=== PATIENT | male | born 1995 | race African-American/Black ===

== ENCOUNTER 2017-10-12 22:01 | Emergency (ER) | payer MEDICAID ==
[2017-10-12] MEDS ORDERED: diphenhydrAMINE 50 MG/ML SDV IM ONE (22:23)
[2017-10-12] MEDS ORDERED: methylPREDNISolone Sodium Succinate 125 MG/2 ML SDV IM ONE (22:23)
[2017-10-12] MEDS ORDERED: EPINEPHrine 1 MG/ML SDV IM ONE (22:23)
--- NOTE | 2017-10-12 22:25 | EDM.PDOC ---
ED HPI GENERAL MEDICAL PROBLEM - General Chief Complaint: Allergic Reaction Stated Complaint: ALLERGIC REACTION Time Seen by Provider: 10/12/17 22:24 Source of Information: Reports: Family, RN Notes Reviewed History Limitations: Reports: No Limitations - History of Present Illness INITIAL COMMENTS - FREE TEXT/NARRATIVE: 22-year-old gentleman presents to the emergency department today with complaint of difficulty breathing and hard to swallow he has a known seafood allergy does carry an EpiPen believes he was recently exposed to some food presented to the emergency department as he does not have his medication chest Pain Score (Numeric/FACES): 7 - Related Data Allergies Allergy/AdvReac Type Severity Reaction Status Date / Time almond Allergy Airway Verified 10/12/17 22:07 Tightness Latex, Natural Rubber Allergy Rash Verified 10/12/17 22:07 shellfish derived Allergy Anaphylactic Verified 10/12/17 22:07 Shock Home Meds: Home Meds EPINEPHrine [Auvi-Q] 0.1 mg SUBCUT ASDIRECTED PRN 10/12/17 [History] Past Medical History Immunologic History: Reports: Other (See Below) (Seafood allergy) Social & Family History - Tobacco Use Smoking Status *Q: Never Smoker ED ROS ALLERGIC REACTION - Review of Systems Review Of Systems: See Below Constitutional: Reports: No Symptoms HEENT: Reports: Throat Pain, Throat Swelling Respiratory: Reports: Shortness of Breath Cardiovascular: Reports: No Symptoms GI/Abdominal: Reports: No Symptoms : Reports: No Symptoms ED EXAM GENERAL NO PERIP PULSE - Physical Exam Exam: See Below Exam Limited By: No Limitations General Appearance: Alert, Mild Distress Throat/Mouth: Normal Inspection, Normal Lips, Normal Teeth, Normal Gums, Normal Oropharynx, Normal Voice, No Airway Compromise Head: Atraumatic, Normocephalic Neck: Normal Inspection, Supple, Non-Tender, Full Range of Motion Respiratory/Chest: No Respiratory Distress, Lungs Clear, Normal Breath Sounds, No Accessory Muscle Use, Chest Non-Tender Cardiovascular: Regular Rate, Rhythm, No Murmur Course - Vital Signs Last Recorded V/S: Last Vital Signs Temp 97.5 F 10/12/17 23:18 Pulse 63 10/12/17 23:18 Resp 18 10/12/17 23:18 BP 127/70 10/12/17 23:18 Pulse Ox 98 10/12/17 23:18 - Orders/Labs/Meds Meds: Medications Discontinued Medications Generic Name Dose Route Start Last Admin Trade Name Rachel PRN Reason Stop Dose Admin Diphenhydramine HCl 50 mg 10/12/17 22:23 10/12/17 22:28 Benadryl IM 10/12/17 22:24 50 mg ONETIME ONE Administration Epinephrine HCl 0.3 mg 10/12/17 22:23 10/12/17 22:27 Adrenalin IM 10/12/17 22:24 0.3 mg ONETIME ONE Administration Methylprednisolone Sodium Succinate 125 mg 10/12/17 22:23 10/12/17 22:28 Solu-Medrol IM 10/12/17 22:24 125 mg ONETIME ONE Administration Departure - Departure Time of Disposition: 00:01 Disposition: Home, Self-Care 01 Condition: Good Clinical Impression: Allergic reaction Qualifiers: Encounter type: initial encounter Qualified Code(s): T78.40XA - Allergy, unspecified, initial encounter - Discharge Information Referrals: PCP,None [Primary Care Provider] - Forms: ED Department Discharge Additional Instructions: Please fill the prescription for the injectable epinephrine, Please followup with your primary care provider in 3-5 days if not better, please call return to the emergency department with worsening of symptoms. - Assessment/Plan Plan: Assessment Acuity = acute Site and laterality = allergic reaction Etiology = secondary to seafood allergy Manifestations = dyspnea and throat swelling no improved Location of injury = Home Lab values = none Plan He was given 0.3 mg epinephrine IM, 50 mg Benadryl IM and 125 mg Solu-Medrol IM significant improvement after treatment he was observed for about 2 hours prescription written for injectable epinephrine 0.3 mg IM 1 him follow-up with his primary care in 3-5 days if not better This note was dictated using Accountable voice recognition software please call with any questions on syntax or grammar.
== END 2017-10-13 00:10 | disposition home or self-care (01) ==
LOC: JP.ED 22:01
DX: T78.1XXA Other adverse food reactions, not elsewhere classified, initial encounter (principal); R06.00 Dyspnea, unspecified; R07.0 Pain in throat; Z91.018 Allergy to other foods; Z91.013 Allergy to seafood
CPT/HCPCS: 96372; 99283; J0171; J1200; J2930

== ENCOUNTER 2017-12-01 20:49 | Emergency (ER) | payer MEDICAID ==
--- NOTE | 2017-12-01 21:33 | EDM.PDOC ---
ED HPI GENERAL MEDICAL PROBLEM - General Chief Complaint: ENT Problem Stated Complaint: BROKEN TOOTH Time Seen by Provider: 12/01/17 21:28 Source of Information: Reports: Patient History Limitations: Reports: No Limitations - History of Present Illness INITIAL COMMENTS - FREE TEXT/NARRATIVE: 22 yo male broke off a portion of a R mandibular molar over a month ago. Has not yet called his dentist. Now has pain to that area so comes to the ER. No fever. 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: Reports: Other (see below) (none) lower right Pain Score (Numeric/FACES): 10 - Related Data Allergies Allergy/AdvReac Type Severity Reaction Status Date / Time almond Allergy Airway Verified 10/12/17 22:07 Tightness Latex, Natural Rubber Allergy Rash Verified 10/12/17 22:07 shellfish derived Allergy Anaphylactic Verified 10/12/17 22:07 Shock Home Meds: Home Meds EPINEPHrine [Auvi-Q] 0.1 mg SUBCUT ASDIRECTED PRN 10/12/17 [History] Past Medical History HEENT History: Reports: Impaired Vision Respiratory History: Reports: Asthma Gastrointestinal History: Reports: Helicobacter Pylori Musculoskeletal History: Reports: Fracture Neurological History: Reports: Concussion Psychiatric History: Reports: ADD, Anxiety, Bipolar, Depression, Panic Attack, Suicide Attempt, Suicidal Ideation Immunologic History: Reports: Other (See Below) (Seafood allergy) Social & Family History - Caffeine Use Caffeine Use: Reports: Soda ED ROS ENT - Review of Systems Review Of Systems: See Below Constitutional: Reports: No Symptoms HEENT: Reports: Dental Pain Respiratory: Reports: No Symptoms Cardiovascular: Reports: No Symptoms Skin: Reports: No Symptoms Neurological: Reports: No Symptoms ED EXAM, ENT - Physical Exam Exam: See Below Exam Limited By: No Limitations General Appearance: Alert, WD/WN, Mild Distress Eye Exam: Bilateral Eye: Normal Inspection Ears: Normal External Exam, Normal Canal, Hearing Grossly Normal Nose: Normal Inspection, Normal Mucousa, No Blood Mouth/Throat: Normal Lips, Normal Oropharynx, Dental Abcess (R mandibular molar 2nd from back, tooth is broken), Dental Pain Head: Atraumatic, Normocephalic Neck: Normal Inspection, Supple, Non-Tender. No: Lymphadenopathy (R), Lymphadenopathy (L) Course - Vital Signs Last Recorded V/S: Last Vital Signs Temp 35.7 C 12/01/17 21:22 Pulse 60 12/01/17 21:22 Resp 16 12/01/17 21:22 BP 133/85 12/01/17 21:22 Pulse Ox 100 12/01/17 21:22 Departure - Departure Time of Disposition: 21:40 Disposition: Home, Self-Care 01 Condition: Fair Clinical Impression: Dental abscess - Discharge Information *PRESCRIPTION DRUG MONITORING PROGRAM REVIEWED*: No *COPY OF PRESCRIPTION DRUG MONITORING REPORT IN PATIENT JAY: No Instructions: Dental Abscess, [id number] Referrals: Ramon Morrell MD [Primary Care Provider] - Additional Instructions: Take penicillin every 6 hrs until gone. Take ibuprofen 600 mg every 6 hrs with food. Add acetaminophen 1000 mg every 6 hrs OR Dane for added pain relief. See your dentist to have that tooth pulled JD. See your family doctor in the interim as needed.
== END 2017-12-01 21:45 | disposition home or self-care (01) ==
LOC: JP.ED 20:49
DX: K04.7 Periapical abscess without sinus (principal); Z91.040 Latex allergy status; Z91.013 Allergy to seafood
CPT/HCPCS: 99283

== ENCOUNTER 2018-11-20 03:52 | Emergency (ER) | payer MEDICAID, OTHER ==
--- NOTE | 2018-11-20 05:55 | EDM.PDOCBH ---
ED HPI GENERAL MEDICAL PROBLEM - General Chief Complaint: Behavioral/Psych Stated Complaint: EVAL Time Seen by Provider: 11/20/18 05:40 Source of Information: Reports: Patient History Limitations: Reports: No Limitations - History of Present Illness INITIAL COMMENTS - FREE TEXT/NARRATIVE: This patient was brought in by the [facility] at the patient's request. He said he is sad because he can't seem to just do things right and is very anxious he's been off of medications for between 6 and 9 months. Denies any suicidal thoughts he said he just wants to get better. Young lady is with him and she agrees that he is not suicidal and had he wants help. Patient does not want a crisis evaluation he said he just wants to be referred to somebody locally - Related Data Allergies Allergy/AdvReac Type Severity Reaction Status Date / Time almond Allergy Airway Verified 11/20/18 04:56 Tightness Latex, Natural Rubber Allergy Rash Verified 11/20/18 04:56 shellfish derived Allergy Anaphylactic Verified 11/20/18 04:56 Shock Home Meds: Home Meds EPINEPHrine [Auvi-Q] 0.1 mg SUBCUT ASDIRECTED PRN 10/12/17 [History] Past Medical History HEENT History: Reports: Impaired Vision Respiratory History: Reports: Asthma Gastrointestinal History: Reports: Helicobacter Pylori Musculoskeletal History: Reports: Fracture Neurological History: Reports: Concussion Psychiatric History: Reports: ADD, Anxiety, Bipolar, Depression, Panic Attack, Psych Hospitalization(s), Suicide Attempt, Suicidal Ideation Immunologic History: Reports: Other (See Below) Other Immunologic History: latex allergy Social & Family History - Tobacco Use Smoking Status *Q: Current Some Day Smoker Years of Tobacco use: 5 Packs/Tins Daily: 0.5 - Caffeine Use Caffeine Use: Reports: Coffee, Soda, Tea - Recreational Drug Use Recreational Drug Use: Yes Drug Use in Last 12 Months: Yes Recreational Drug Type: Reports: Marijuana/Hashish Recreational Drug Use Frequency: Daily ED ROS GENERAL - Review of Systems Review Of Systems: ROS reveals no pertinent complaints other than HPI. ED EXAM, BEHAVIORAL HEALTH - Physical Exam Exam: See Below Exam Limited By: No Limitations General Appearance: Alert, WD/WN, Anxious (Anxious sometimes just a little bit tearful) Eye Exam: Bilateral Eye: Normal Inspection Ears: Normal External Exam Nose: Normal Inspection Throat/Mouth: Normal Inspection Head: Atraumatic Neck: Supple Respiratory/Chest: Lungs Clear Cardiovascular: Regular Rate, Rhythm GI/Abdominal: Non-Tender Extremities: Normal Inspection Neurological: Alert, CN II-XII Intact Psychiatric: Depressed Mood, Other (Seems anxious) Skin Exam: Warm, Dry COURSE, BEHAVIORAL HEALTH COMP - Course Vital Signs: Last Vital Signs Temp 35.7 C 11/20/18 04:56 Pulse 60 11/20/18 04:56 Resp 24 H 11/20/18 04:56 BP 129/71 11/20/18 04:56 Pulse Ox 100 11/20/18 04:56 Re-Assessment/Re-Exam: The patient did not want to see the crisis counselor is just wants the phone numbers for various people in town that he can contact. Again he denies any plans to hurt himself and his girlfriend corroborates. She's comfortable with him going home and will be with him over the weekend Departure - Departure Time of Disposition: 05:53 Disposition: Home, Self-Care 01 Condition: Fair Clinical Impression: Anxiety - Discharge Information Instructions: Generalized Anxiety Disorder, Adult Referrals: PCP,None [Primary Care Provider] - Forms: ED Department Discharge Additional Instructions: On Thursday call one of the mental health counselors listed in the literature you are being given. If needed use the anxiety medicine Ativan (lorazepam) 1 mg, one half or one tablet 3 times a day as needed. This medication can cause sedation and impaired driving and can eventually lead to dependency. Be sure not to take this medication with alcohol.
== END 2018-11-20 06:09 | disposition home or self-care (01) ==
LOC: JP.ED 03:52
DX: F41.9 Anxiety disorder, unspecified (principal); F17.210 Nicotine dependence, cigarettes, uncomplicated; Z91.018 Allergy to other foods; Z91.013 Allergy to seafood
CPT/HCPCS: 99282; 99283

== ENCOUNTER 2018-12-10 04:55 | Observation (INO) | payer OTHER ==
[2018-12-10] MEDS ORDERED: HYDROmorphone 0.5 MG/0.5 ML Syringe IVPUSH ONE (05:27)
--- NOTE | 2018-12-10 05:27 | EDM.PDOC ---
ED HPI GENERAL MEDICAL PROBLEM - General Chief Complaint: Gastrointestinal Problem Stated Complaint: TROUBLE SWALLING,HARD TO BREATH Time Seen by Provider: 12/10/18 05:00 Source of Information: Reports: Patient History Limitations: Reports: No Limitations - History of Present Illness INITIAL COMMENTS - FREE TEXT/NARRATIVE: 23-year-old male with previous esophageal foreign body issues presents with sensation of a foreign body in his esophagus since last evening. He had already felt uncomfortable after eating pizza last night when he went to bed, but he woke at 4 AM very uncomfortable because he couldn't swallow his own saliva. Since that time he has a very persistent sensation of complete obstruction of the upper esophagus. No shortness of breath. No fever or chills. Onset: Gradual (Symptoms started last evening and gradually worsened overnight) Worsens with: Reports: Other (Worsens with trying to swallow) Associated Symptoms: Reports: Chest Pain, Other (Developing a scratchy sensation or fullness in his throat). Denies: Diaphoresis, Malaise, Shortness of Breath throat Pain Score (Numeric/FACES): 7 - Related Data Allergies Allergy/AdvReac Type Severity Reaction Status Date / Time almond Allergy Airway Verified 12/10/18 05:23 Tightness Latex, Natural Rubber Allergy Rash Verified 12/10/18 05:23 shellfish derived Allergy Anaphylactic Verified 12/10/18 05:23 Shock Home Meds: Home Meds EPINEPHrine [Auvi-Q] 0.1 mg SUBCUT ASDIRECTED PRN 10/12/17 [History] Albuterol Sulfate [Albuterol Sulfate Hfa] 8.5 gm IH Q4HR PRN 12/10/18 [History] LORazepam [Ativan] 0.5 mg PO ASDIRECTED 12/10/18 [History] Past Medical History HEENT History: Reports: Impaired Vision Respiratory History: Reports: Asthma Gastrointestinal History: Reports: Helicobacter Pylori Musculoskeletal History: Reports: Fracture Neurological History: Reports: Concussion Psychiatric History: Reports: ADD, Anxiety, Bipolar, Depression, Panic Attack, Psych Hospitalization(s), Suicide Attempt, Suicidal Ideation Immunologic History: Reports: Other (See Below) Other Immunologic History: latex allergy Social & Family History - Caffeine Use Caffeine Use: Reports: Coffee, Soda, Tea ED ROS GENERAL - Review of Systems Review Of Systems: See Below Constitutional: Reports: Decreased Appetite. Denies: Fever, Chills HEENT: Reports: Throat Pain Respiratory: Denies: Shortness of Breath, Cough Cardiovascular: Reports: Chest Pain GI/Abdominal: Reports: Vomiting. Denies: Abdominal Pain, Nausea : Reports: No Symptoms Skin: Reports: No Symptoms Neurological: Denies: Headache ED EXAM, GI/ABD - Physical Exam Exam: See Below Exam Limited By: No Limitations General Appearance: Alert, Mild Distress (Fairly uncomfortable) Eyes: Bilateral: Normal Appearance Head: Atraumatic Respiratory/Chest: No Respiratory Distress, Lungs Clear Cardiovascular: Regular Rate, Rhythm GI/Abdominal Exam: Non-Tender Neurological: Alert, Oriented Psychiatric: Anxious Skin Exam: Warm, Dry Course - Vital Signs Last Recorded V/S: Last Vital Signs Temp 96.4 F 12/10/18 08:51 Pulse 59 L 12/10/18 08:51 Resp 14 12/10/18 08:51 BP 102/47 L 12/10/18 08:51 Pulse Ox 96 12/10/18 08:51 - Orders/Labs/Meds Orders: Active Orders 24 hr Category Date Time Status OR Fluoro-NC [CR] Routine Exams 12/10/18 07:45 Taken Dextrose 5%-Lactated Ringers 1,000 ml Med 12/10/18 07:30 Active IV ASDIRECTED Lactated Ringers [Ringers, Lactated] 1,000 ml Med 12/10/18 05:30 Active IV ASDIRECTED Medication Orders Lactated Ringer's (Ringers, Lactated) 1,000 mls @ 250 mls/hr IV ASDIRECTED AMBER Last Admin: 12/10/18 05:31 Dose: 250 mls/hr Dextrose/Lactated Ringer's (Dextrose 5%-Lactated Ringers) 1,000 mls @ 100 mls/ hr IV ASDIRECTED ONE Stop: 12/10/18 17:29 Meds: Medications Generic Name Dose Route Start Last Admin Trade Name Rachel PRN Reason Stop Dose Admin Lactated Ringer's 1,000 mls @ 250 mls/hr 12/10/18 05:30 12/10/18 05:31 Ringers, Lactated IV 250 mls/hr ASDIRECTED AMBER Administration Dextrose/Lactated Ringer's 1,000 mls @ 100 mls/hr 12/10/18 07:30 Dextrose 5%-Lactated Ringers IV 12/10/18 17:29 ASDIRECTED ONE Discontinued Medications Generic Name Dose Route Start Last Admin Trade Name Rachel PRN Reason Stop Dose Admin Fentanyl Confirm 12/10/18 07:20 Sublimaze Administered 12/10/18 07:21 Dose 100 mcg .ROUTE .STK-MED ONE Glycopyrrolate 0.4 mg 12/10/18 07:45 12/10/18 07:57 Glycopyrrolate IVPUSH 12/10/18 07:46 0.4 mg ONETIME ONE Administration Hydromorphone HCl 0.5 mg 12/10/18 05:27 12/10/18 05:32 Dilaudid IVPUSH 12/10/18 05:28 0.5 mg ONETIME ONE Administration Midazolam HCl Confirm 12/10/18 07:20 Versed 1 Mg/Ml Administered 12/10/18 07:21 Dose 2 mg .ROUTE .STK-MED ONE Pantoprazole Sodium 40 mg 12/10/18 08:25 12/10/18 08:29 Protonix Iv IVPUSH 12/10/18 08:26 40 mg ONETIME ONE Administration Propofol Confirm 12/10/18 07:20 Diprivan 20 Ml Administered 12/10/18 07:21 Dose 200 mg .ROUTE .STK-MED ONE - Re-Assessments/Exams Free Text/Narrative Re-Assessment/Exam: 12/10/18 05:25 This patient will be sent over to the [facility] to be worked in for an EGD as soon as possible. An IV was started and he'll be hydrated with LR at 250 an hour. Departure - Departure Time of Disposition: 06:12 Disposition: DC/Tfer to Other 70 Clinical Impression: Esophageal foreign body Qualifiers: Encounter type: initial encounter Qualified Code(s): T18.108A - Unspecified foreign body in esophagus causing other injury, initial encounter - Discharge Information - My Orders Last 24 Hours: My Active Orders 12/10/18 05:30 Lactated Ringers [Ringers, Lactated] 1,000 ml IV ASDIRECTED - Assessment/Plan Last 24 Hours: My Active Orders 12/10/18 05:30 Lactated Ringers [Ringers, Lactated] 1,000 ml IV ASDIRECTED
[2018-12-10] MEDS ORDERED: Lactated Ringers 1,000 ML IV SCH (05:30)
[2018-12-10] MEDS ORDERED: fentaNYL 100 MCG/2 ML SDV ONE (07:20)
[2018-12-10] MEDS ORDERED: Midazolam 1 MG/ML 2 ML SDV ONE (07:20)
[2018-12-10] MEDS ORDERED: Propofol 200 MG/20 ML SDV ONE (07:20)
[2018-12-10] MEDS ORDERED: Dextrose 5%-Lactated Ringers 1,000 ML IV ONE (07:30)
[2018-12-10] MEDS ORDERED: Glycopyrrolate 0.2 MG/ML 2 ML SDV IVPUSH ONE (07:45)
[2018-12-10] MEDS ORDERED: Pantoprazole 40 MG Vial IVPUSH ONE (08:25)
[2018-12-10] MEDS ORDERED: HYDROmorphone 2 MG Tab PO ONE (09:55)
[2018-12-10] MEDS ORDERED: HYDROmorphone 1 MG/ML Syringe IVPUSH ONE (10:17)
[2018-12-10] MEDS ORDERED: Piperacillin/Tazobactam 3.375 GM in Sodium Chloride 0.9% 50 ML IV ONE (11:08)
[2018-12-10] MEDS: HYDROmorphone 1 MG/ML Syringe IVPUSH PRN ×2 (11:12→12:29)
[2018-12-10] MEDS ORDERED: Piperacillin/Tazobactam/Dext 3.375 GM in Premix Bag 1 BAG IV ONE (11:15)
--- NOTE | 2018-12-10 11:25 | CRLCT ---
INDICATION: Epigastric pain. TECHNIQUE: Noncontrast images. FINDINGS: Normal lung parenchyma. No esophageal dilatation. No adenopathy in the mediastinum or apolonia given the limitations of a noncontrast CT. No pneumothorax or effusion. No pneumomediastinum. Cholelithiasis. No other parenchymal abnormality. Moderate volume of formed stool within the redundant colon. Some apparent stasis changes in the distal ileum mild dilatation and stippled inter luminal air and fluid. No air or fluid in the peritoneum. Urinary bladder is unremarkable. IMPRESSION: 1. Cholelithiasis. 2. Possible mild stasis distal ileum. Query mild constipation. Please note that all CT scans at this facility use dose modulation, iterative reconstruction, and/or weight-based dosing when appropriate to reduce radiation dose to as low as reasonably achievable. Dictated by Omkar Vizcarra MD @ Dec 10 2018 11:22AM Signed by Dr. Omkar Vizcarra @ Dec 10 2018 11:22AM
[2018-12-10] MEDS ORDERED: Lidocaine 2% 60 ML, Alum Hydrox/Mag Hydrox/Simeth 360 ML PO PRN ×2 (11:36)
[2018-12-10] MEDS: Hyoscyamine 0.125 MG Tab.SL SL PRN ×2 (11:50→17:32)
[2018-12-10] MEDS ORDERED: Naloxone 0.4 MG/ML SDV IV PRN (14:13)
[2018-12-10] MEDS ORDERED: HYDROmorphone/Normal Saline 15 MG/30 ML PCA IV PRN (14:13)
[2018-12-10] MEDS: Ondansetron 4 MG/2 ML SDV IVPUSH PRN ×2 (14:17→17:32)
[2018-12-10] MEDS: Dextrose 5%-Lactated Ringers 1,000 ML IV SCH (20:53)
[2018-12-10] MEDS ORDERED: Metoclopramide 10 MG/2 ML SDV IVPUSH STA (21:07)
[2018-12-11] MEDS: Metoclopramide 10 MG/2 ML SDV IVPUSH SCH ×2 (03:43→09:50)
[2018-12-11] MEDS: Dextrose 5%-Lactated Ringers 1,000 ML IV SCH (06:55)
[2018-12-11] MEDS ORDERED: Pantoprazole 40 MG Vial IV SCH (09:00)
[2018-12-11] MEDS: Lidocaine 2% 60 ML, Alum Hydrox/Mag Hydrox/Simeth 360 ML PO SCH ×4 (10:14→12:34)
--- NOTE | 2018-12-15 11:49 | PN ---
DATE OF SERVICE: 12/10/2018 Following his upper endoscopy, biopsies, dilation, and removal of foreign body, the patient was noted to have severe epigastric and chest pain. We thought there might be possibility of a perforation. A CT scan was obtained, which did not show any free air or obvious perforation. Clinically, he has otherwise remained quite stable, other than for the amount of pain. The plan will be to admit the patient overnight for observation, to make sure that his clinical status does not evolve to more of a suspicion of perforation and also try to treat the esophagitis, which is quite severe. We will give him some topical lidocaine viscous mixed with Maalox on a scheduled basis and see how he does. We will try a full- liquid diet and see where we are at with him in the morning. Manas Javier MD /[id number]
--- NOTE | 2018-12-15 13:07 | OR ---
DATE OF PROCEDURE: 12/10/2018 SURGEON: Manas Javier MD PREOPERATIVE DIAGNOSIS: Esophageal foreign body. POSTOPERATIVE DIAGNOSES: 1. Esophageal foreign body with a small hiatal hernia and very striking gastroesophageal reflux disease and narrowing of the esophagogastric junction. 2. Mild antral gastritis. OPERATIVE PROCEDURES: Esophagogastroduodenoscopy with: 1. Removal of foreign body, distal esophagus. 2. Biopsy of the antrum for CLOtest. 3. Biopsy of esophagogastric junction for histologic evaluation. 4. Dilation of esophagus over a guidewire. ANESTHESIA: IV sedation. INDICATION FOR PROCEDURE: A 23-year-old presenting with recurrent episodes of food getting caught in his distal esophagus. By history, this appeared to be most likely some pizza crust that likely enlarged related to absorbing fluid. He did have one previous episode of food being caught, requiring its removal. He described some occasional heartburn symptoms, which he treats with Tums but has not been on any more intense medical treatment for his probable reflux. He does not typically have problems with dysphagia, so this does not appear too likely, by clinical history, that he has a primary esophageal motility disorder. The plan is to proceed with upper GI endoscopy with removal of foreign body with biopsy and/or dilation. Potential risks including bleeding and perforation were discussed, and the patient wishes to proceed. DETAILS OF PROCEDURE: The patient was taken to the operating room and placed in a left lateral decubitus position. IV sedation was administered, after which the upper GI endoscope was passed orally into the distal esophagus. The patient had some retained food stuck there, which was then pushed downward into the stomach. This appeared to be consistent with some engorged pizza crust type material. The patient was noted to have a quite striking inflammation at the esophagogastric junction at this point with some blood and bleeding on one surface, as well as multiple areas of ulceration. This was also somewhat narrowed and appeared primarily related to what appeared to be edema associated with small hiatal hernia with a length of 2 cm. Within the antrum, there was patchy redness as well, otherwise, the remainder of the stomach and duodenal exams were unremarkable. At this point, with the foreign body having been removed, biopsy was obtained from the antrum and sent for CLOtest for H. pylori. Multiple biopsies were then obtained from esophagogastric junction and sent for histologic evaluation. Minimal bleeding from the biopsy site was seen. Following this, guidewire was passed into the stomach and over this, a 54-Kiswahili Savary dilator was passed for fluoroscopic surveillance. This was held in position for 1 minute, and procedure was then concluded. There were no evident complications. The patient was taken to the recovery room in a satisfactory condition. Manas Javier MD /[id number]
--- NOTE | 2018-12-15 13:25 | PN ---
DATE OF SERVICE: 12/10/2018 Following upper endoscopy with removal of foreign body, biopsies, and dilation of narrowed distal esophagus in the ICU area, the patient complained of increasingly severe chest pain. We had obtained a CT scan which showed no evidence of perforation. His white count and his vital signs have always been stable. He did receive 1 dose of antibiotic prior to the CAT scan showing noted perforation. The plan is to proceed with keeping the patient in the hospital overnight. He was admitted overnight on a short-stay at least while we converted to an inpatient per the hospital rules. We will give him with some Levsin for esophageal spasm and the Lidocaine and Maalox oral cocktail, and close clinical observation to make sure there are no further signs of the progression of the symptoms indicative of possible missed perforation on CT scan. Manas Javier MD /[id number]
--- NOTE | 2018-12-15 13:49 | PN ---
DATE OF SERVICE: 12/11/2018 The patient has been afebrile with temperature running in the 98 range. Vital signs are also stable. Blood pressure is 118/50 and heart rates running in the 50s to 70s. He has some discomfort, but much less than yesterday. He did have 1 small emesis during the night. Currently, examination is soft in terms of abdominal exam. Labs show white count of 14,900, hemoglobin is stable at 12.2. Chemistries are unremarkable. Of note, his amylase is normal as well. It would appear the patient has little evidence of having a perforation at this point. His clinical course has not deteriorated overnight. We will give him the scheduled lidocaine- Maalox solution every 3 hours today and try a full liquid diet. His Protonix was not started yesterday, and we will start that today as well and mostly, we will have to follow with him in regard to his oral intake status and readiness for discharge. Manas Javier MD /[id number]
== END 2018-12-11 14:00 ==
LOC: JP.ED 04:55 → JP.SDS 05:53 → JP.MS 12:55 → JP.SDS 13:36
PROVIDERS: ADMIT Surgery; ATTEND Surgery
DX: T18.108A Unspecified foreign body in esophagus causing other injury, initial encounter (principal); R13.10 Dysphagia, unspecified; J45.909 Unspecified asthma, uncomplicated; F41.9 Anxiety disorder, unspecified; Z91.018 Allergy to other foods; Z91.040 Latex allergy status; Z91.013 Allergy to seafood; Z79.899 Other long term (current) drug therapy
CPT/HCPCS: 36415; 71250; 74176; 80053; 82150; 83735; 84100; 85025; 85027; 87081; 94762; 96361; 96365; 96375; 96376; 99285; A9270; C9113; G0378; J1170; J2250; J2405; J2543; J2704; J2765; J3010; J3490; J7042; J7120; 88305; 88312; 96374

== ENCOUNTER 2019-01-09 15:26 | Emergency (ER) | payer SELFPAY ==
--- NOTE | 2019-01-09 16:11 | EDM.PDOC ---
ED HPI GENERAL MEDICAL PROBLEM - General Chief Complaint: ENT Problem Stated Complaint: SORE THROAT Time Seen by Provider: 01/09/19 16:00 Source of Information: Reports: Patient, Family History Limitations: Reports: No Limitations - History of Present Illness INITIAL COMMENTS - FREE TEXT/NARRATIVE: Alert male presents to ER for concern regarding chest discomfort palpations, neck fullness/pain and anxious regarding recent drug use. Patient had fullness in right neck this am and was concerned causing his heart to race and pressure in chest, with tingling in his fingers and head. Patient presents with female friend for evaluation. Patient used Adderall 4 tablets last night which helps focus his creative brain (not his prescription). He felt confused and used Cocaine last night. He slept on the floor and had stiffness and fullness in the right side of his neck and very anxious. Patient has not ate or drank anything this am. Patient is concerned regarding his heart racing and neck pain today. - Related Data Allergies Allergy/AdvReac Type Severity Reaction Status Date / Time almond Allergy Severe Airway Verified 01/09/19 15:41 Tightness shellfish derived Allergy Severe Anaphylactic Verified 01/09/19 15:41 Shock Latex, Natural Rubber Allergy Rash Verified 01/09/19 15:41 Home Meds: Home Meds EPINEPHrine [Auvi-Q] 0.1 mg SUBCUT ASDIRECTED PRN 10/12/17 [History] Albuterol Sulfate [Albuterol Sulfate Hfa] 8.5 gm IH Q4HR PRN 12/10/18 [History] LORazepam [Ativan] 0.5 mg PO ASDIRECTED 12/10/18 [History] Pantoprazole Sodium [Protonix] 40 mg PO DAILY #30 tablet. 12/11/18 [Rx] Past Medical History HEENT History: Reports: Impaired Vision Respiratory History: Reports: Asthma Gastrointestinal History: Reports: GERD, Helicobacter Pylori, Hiatal Hernia Musculoskeletal History: Reports: Fracture Neurological History: Reports: Concussion Psychiatric History: Reports: ADD, Anxiety, Bipolar, Depression, Panic Attack, Psych Hospitalization(s), Suicide Attempt, Suicidal Ideation Immunologic History: Reports: Other (See Below) Other Immunologic History: latex allergy - Past Surgical History Head Surgeries/Procedures: Reports: None Social & Family History - Family History Family Medical History: Unobtainable - Tobacco Use Smoking Status *Q: Current Some Day Smoker Years of Tobacco use: 4 Packs/Tins Daily: 0.5 - Caffeine Use Caffeine Use: Reports: Coffee, Soda, Tea - Recreational Drug Use Recreational Drug Type: Reports: Marijuana/Hashish Recreational Drug Use Frequency: Monthly ED ROS GENERAL - Review of Systems Review Of Systems: ROS reveals no pertinent complaints other than HPI. ED EXAM, UPPER BACK/NECK PAIN - Physical Exam Exam: See Below Exam Limited By: No Limitations General Appearance: Alert, WD/WN, Mild Distress Eye Exam: Bilateral Eye: EOMI, PERRL Ears Exam: Normal External Exam, Normal Canal, Hearing Grossly Normal Nose Exam: Normal Inspection, Normal Mucousa, No Blood Throat/Mouth Exam: Normal Inspection, Normal Lips, Normal Teeth, Normal Gums, Normal Oropharynx, Normal Voice, No Airway Compromise Head Exam: Atraumatic, Normocephalic Neck Exam: Normal Alignment, Normal Inspection, Limited Range of Motion (due to right anterior later neck pain along SCM), Tenderness (right SCM). 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 Tested, No Motor/Sensory Deficits, Alert, Normal Mood/Affect, Oriented x 3 Psychiatric: Normal Mood, Anxious Skin Exam: Normal Color, Warm/Dry EKG INTERPRETATION EKG Date: 01/09/19 Time: 19:10 Rhythm: NSR Rate (Beats/Min): 56 Sandy: Normal P-Wave: Present QRS: Normal ST-T: Elevated (early repolarization normal in age) QT: Normal Comparison: NA - No Prior EKG Course - Vital Signs Last Recorded V/S: Last Vital Signs Temp 36.1 C 01/09/19 15:36 Pulse 62 01/09/19 15:36 Resp 16 01/09/19 15:36 BP 145/93 H 01/09/19 15:36 Pulse Ox 100 01/09/19 15:36 - Orders/Labs/Meds Orders: Active Orders 24 hr Category Date Time Status EKG Documentation Completion [RC] ASDIRECTED Care 01/09/19 16:07 Active Vital Signs [RC] PFP Care 01/09/19 17:26 Active EKG 12 Lead [EK] Urgent Ther 01/09/19 16:07 Ordered Labs: Laboratory Tests 01/09/19 Range/Units 16:23 Troponin I < 0.017 (0.000-0.056) ng/mL Departure - Departure Time of Disposition: 17:22 Disposition: Home, Self-Care 01 Clinical Impression: Strain of neck muscle, Drug abuse, cocaine type, Drug abuse, amphetamine type, Drug abuse, marijuana, Elevated blood pressure reading - Discharge Information Instructions: Stimulant Use Disorder-Amphetamines, Heart Disease Prevention, Stimulant Use Disorder-Cocaine, Cannabis Use Disorder, Chemical Dependency, Cervical Strain and Sprain Rehab-SportsMed, Hypertension, [id number], Cervical Sprain, [id number], Acute Torticollis, Adult, Hypertension Referrals: PCP,None [Primary Care Provider] - Forms: ED Department Discharge Additional Instructions: 1. Drink 2-3 liters this evening to flush the drugs out of your system. 2. STOP using drugs that your are not prescribed and obtained on the street due to risk to health including a Heart Attack. 3. Your EKG and Blood test for heart attack are negative today but may not be with nest use. 4. Contact PCP for recheck if continued symptoms or concerns over the next week - My Orders Last 24 Hours: My Active Orders 01/09/19 16:07 EKG Documentation Completion [RC] ASDIRECTED EKG 12 Lead [EK] Urgent 01/09/19 17:26 Vital Signs [RC] PFP - Assessment/Plan Last 24 Hours: My Active Orders 01/09/19 16:07 EKG Documentation Completion [RC] ASDIRECTED EKG 12 Lead [EK] Urgent 01/09/19 17:26 Vital Signs [RC] PFP
== END 2019-01-09 18:03 | disposition home or self-care (01) ==
LOC: JP.ED 15:26
DX: S16.1XXA Strain of muscle, fascia and tendon at neck level, initial encounter (principal); R03.0 Elevated blood-pressure reading, without diagnosis of hypertension; F14.10 Cocaine abuse, uncomplicated; F15.10 Other stimulant abuse, uncomplicated; F12.10 Cannabis abuse, uncomplicated; F41.0 Panic disorder [episodic paroxysmal anxiety]; F32.9 Major depressive disorder, single episode, unspecified; J45.909 Unspecified asthma, uncomplicated; K21.9 Gastro-esophageal reflux disease without esophagitis; F17.210 Nicotine dependence, cigarettes, uncomplicated; Z91.013 Allergy to seafood; Z91.018 Allergy to other foods; Z91.040 Latex allergy status; Z79.899 Other long term (current) drug therapy; X58.XXXA Exposure to other specified factors, initial encounter
CPT/HCPCS: 36415; 84484; 93005; 99283; 99284-25

== ENCOUNTER 2019-06-29 10:25 | Emergency (ER) | payer OTHER ==
--- NOTE | 2019-06-29 11:02 | EDM.PDOC ---
ED HPI GENERAL MEDICAL PROBLEM - General Chief Complaint: Eye Problems Stated Complaint: MEDICAL VIA [facility] Time Seen by Provider: 06/29/19 10:50 Source of Information: Reports: Patient, EMS, Old Records, RN History Limitations: Reports: No Limitations - History of Present Illness INITIAL COMMENTS - FREE TEXT/NARRATIVE: 24 yo male was working at the [employer] in [place] today and got some acid in his left eye(StainBlaster Enzyme Boost) containing dodecylbenzenesulphonic acid and nitrolotriethenol 1:1 ratio. Other ingredients: isopropanol, triethanolamine and sodium metabisulphite. His eyes were washed out both at the scene by the [employer] and by EMS en route. His vision is blurry now on arrival and he has some burning(left eye only). 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 (see below) (eye flushed) Left Eye Pain Score (Numeric/FACES): 6 - Related Data Allergies Allergy/AdvReac Type Severity Reaction Status Date / Time almond Allergy Severe Airway Verified 06/29/19 10:34 Tightness shellfish derived Allergy Severe Anaphylactic Verified 06/29/19 10:34 Shock Latex, Natural Rubber Allergy Rash Verified 06/29/19 10:34 Home Meds: Home Meds EPINEPHrine [Auvi-Q] 0.1 mg SUBCUT ASDIRECTED PRN 10/12/17 [History] Albuterol Sulfate [Albuterol Sulfate Hfa] 8.5 gm IH Q4HR PRN 12/10/18 [History] LORazepam [Ativan] 0.5 mg PO ASDIRECTED PRN 12/10/18 [History] Past Medical History HEENT History: Reports: Impaired Vision Respiratory History: Reports: Asthma Gastrointestinal History: Reports: GERD, Helicobacter Pylori, Hiatal Hernia Musculoskeletal History: Reports: Fracture Neurological History: Reports: Concussion Psychiatric History: Reports: ADD, Anxiety, Bipolar, Depression, Panic Attack, Psych Hospitalization(s), Suicide Attempt, Suicidal Ideation Immunologic History: Reports: Other (See Below) Other Immunologic History: latex allergy - Past Surgical History Head Surgeries/Procedures: Reports: None Social & Family History - Family History Family Medical History: Unobtainable - Tobacco Use Smoking Status *Q: Current Every Day Smoker Years of Tobacco use: 3 Packs/Tins Daily: 0.2 - Caffeine Use Caffeine Use: Reports: Coffee - Recreational Drug Use Recreational Drug Use: Yes Recreational Drug Type: Reports: Marijuana/Hashish ED ROS GENERAL - Review of Systems Review Of Systems: See Below Constitutional: Reports: No Symptoms HEENT: Reports: Eye Pain (L eye burning), Vision Change (L eye blurry) Respiratory: Reports: No Symptoms Cardiovascular: Reports: No Symptoms Skin: Reports: No Symptoms ED EXAM GENERAL W FULL EYE - Physical Exam Exam: See Below Exam Limited By: No Limitations General Appearance: Alert, WD/WN, No Apparent Distress Eye Exam: Bilateral Eye: EOMI, Normal Inspection, PERRL Visual Acuity (R) 20/: 20 Visual Acuity (L) 20/: 200 With Correction: No Eyelids: Bilateral: Normal Appearance Conjunctiva & Sclera: Left: Other (minimal conjunctival injection) Cornea Exam: Left: Corneal Abrasion (superficial fluorescein uptake), Examined with Flourescein Extraocular Movements: Bilateral: Intact Pupils: Normal Accommodation Pupillary Size: Bilateral: 2 mm Ears: Normal External Exam, Normal Canal, Hearing Grossly Normal Nose: Normal Inspection, No Blood Throat/Mouth: Normal Voice, No Airway Compromise Head: Atraumatic, Normocephalic Neurological: Alert, Oriented, CN II-XII Intact, Normal Cognition, No Motor/ Sensory Deficits Psychiatric: Normal Affect, Normal Mood Skin Exam: Warm, Dry, Intact, Normal Color, No Rash Course - Vital Signs Text/Narrative:: L eye pH tested, test shows pH to be about 7.5 Last Recorded V/S: Last Vital Signs Temp 36.6 C 06/29/19 10:37 Pulse 52 L 06/29/19 10:37 Resp 16 06/29/19 10:37 BP 136/81 06/29/19 10:37 Pulse Ox 100 06/29/19 10:37 Departure - Departure Time of Disposition: 11:17 Disposition: Home, Self-Care 01 Condition: Fair Clinical Impression: Acid chemical burn of cornea Qualifiers: Encounter type: initial encounter Laterality: left Qualified Code(s): T26.62XA - Corrosion of cornea and conjunctival sac, left eye, initial encounter - Discharge Information *PRESCRIPTION DRUG MONITORING PROGRAM REVIEWED*: Not Applicable *COPY OF PRESCRIPTION DRUG MONITORING REPORT IN PATIENT JAY: Not Applicable Instructions: Chemical Conjunctivitis, Adult, [id number] Referrals: PCP,None [Primary Care Provider] - Forms: ED Department Discharge Additional Instructions: No eye rubbing. Avoid eye strain today or bright lights. Apply Erythromycin ointment to that eye every 6 hrs for 2 days. Take ibuprofen or acetaminophen as needed for pain relief. Recheck in the clinic tomorrow or with your eye doctor. Sepsis Event Note - Evaluation Sepsis Screening Result: No Definite Risk - Focused Exam Vital Signs: Vital Signs Temp Pulse Resp BP Pulse Ox 06/29/19 10:37 36.6 C 52 L 16 136/81 100 06/29/19 10:35 36.6 C 52 L 16 136/81 100 Date Exam was Performed: 06/29/19 Time Exam was Performed: 11:03
== END 2019-06-29 11:31 | disposition home or self-care (01) ==
LOC: JP.ED 10:25
CPT/HCPCS: 99283; 99284